=== PATIENT | male | born 1945 | race Caucasian/White ===

== ENCOUNTER 2017-10-12 06:56 | Day surgery (SDC) | payer BC, OTHER ==
[2017-10-12] MEDS ORDERED: TETRACAINE 0.5% OPHTH 1 DOSE AFFEYE ONE ×2 (07:03→09:11)
[2017-10-12] MEDS ORDERED: VIGAMOX 0.5% OPHTH 1 DOSE AFFEYE ONE ×5 (07:05→09:53)
[2017-10-12] MEDS ORDERED: NS 500 ML IV 500 ML IV ONE (07:08)
[2017-10-12] MEDS ORDERED: PROLENSA OPHTH 1 DOSE AFFEYE ONE (07:16)
[2017-10-12] MEDS ORDERED: ALPHAGAN-P OPHTH 1 DOSE AFFEYE ONE (07:18)
[2017-10-12] MEDS ORDERED: CYCLOGYL 1% OPHTH 1 DOSE OP ONE ×4 (07:20→07:28)
[2017-10-12] MEDS ORDERED: MYDRIACIL OPHTH 1 DOSE AFFEYE ONE ×4 (07:20→07:28)
[2017-10-12] MEDS ORDERED: AK-DILATE 2.5% OPHTH 1 DOSE OP ONE ×4 (07:20→07:28)
[2017-10-12] MEDS ORDERED: BETADINE OPHTH SOLN 5% EACHEYE ONE (09:11)
[2017-10-12] MEDS ORDERED: AK-DILATE 10% OPHTH 1 DOSE AFFEYE ONE (09:11)
[2017-10-12] MEDS ORDERED: ADRENALINE CHL INJ IJ ONE ×2 (09:27→09:40)
[2017-10-12] MEDS ORDERED: XYLOCAINE-MPF 1% IJ ONE ×2 (09:27→09:40)
[2017-10-12] MEDS ORDERED: DUOVISC IO ONE ×2 (09:27→09:40)
[2017-10-12] MEDS ORDERED: BSS OPHTH (PLAIN) 500 ML with VANCOMYCIN HCL 500 MG VIAL 25 MG, ADRENALINE CHL INJ 1 MG IR ONE ×6 (09:31)
[2017-10-12 10:15] VITALS: BP 161/87
[2017-10-12] MEDS ORDERED: DIPRIVAN VIAL ONE (10:56)
== END 2017-10-12 10:15 | disposition home or self-care (01) ==
LOC: SURG1 06:56
PROVIDERS: ATTEND Ophthalmology
PROC: 08DJ3ZZ Extraction of Right Lens, Percutaneous Approach (ICD-10-PCS; principal; 2017-10-12 07:30)
PROC: 08RJ3JZ Replacement of Right Lens with Synthetic Substitute, Percutaneous Approach (ICD-10-PCS; principal; 2017-10-12 07:30)
DX: H25.11 Age-related nuclear cataract, right eye (principal); H25.011 Cortical age-related cataract, right eye
CPT/HCPCS: 99100; A4217; J0170; J3370; J3490